=== PATIENT | female | born 1955 | race Caucasian/White ===

== ENCOUNTER → 2017-06-24 | Outpatient (CLI) | payer BC ==
[2014-07-26 16:29] VITALS: BP 127/77
--- NOTE | 2017-06-24 14:56 | RAD ---
HISTORY: Pain Study: Right hip series Comparison: None Findings: There is mild joint space narrowing in both hips. No fracture or dislocation is seen. The soft tissue s are normal. The pelvis is intact. Impression: Mild joint space narrowing in the hips otherwise, unremarkable. Reported By:
--- NOTE | 2017-06-24 14:57 | RAD ---
HISTORY: Pain Study: Bar spine series Comparison: None Findings: The lumbar vertebra are well aligned. There is moderate disc space narrowing throughout with prominen t marginal osteophytes throughout. No fracture or subluxation is seen. There are sclerotic changes of the facets inferiorly with no pars defects. IMPRESSION: Moderate degenerative disc changes throughout and moderate osteoarthritic changes of facets with no a cute abnormality seen. Reported By:
== END ==
LOC: RAD 14:19
PROVIDERS: ATTEND Nurse Practitioner Family
DX: M54.17 Radiculopathy, lumbosacral region (principal); M25.551 Pain in right hip
CPT/HCPCS: 72100; 73501

== ENCOUNTER → 2017-07-05 | Outpatient (CLI) | payer BC ==
[2014-07-26 16:29] VITALS: BP 127/77
--- NOTE | 2017-07-05 15:59 | MRI ---
MRI lumbar spine without contrast Indication: Chronic low back pain Comparison: Lumbar radiographs 06/24/2017. No previous MRI. Technique: Multiplanar multi sequence MR images of the lumbar spine were obtained without contrast. Findings: Lumbar spine alignment is normal. There is no evidence for acute lumbar spine fracture or s uspicious marrow lesion. Multilevel degenerative changes are discussed on a level by level basis luis enrique espinoza. The conus terminates at L1-2. The cauda equina is grossly unremarkable aside from nerve root crowd ing at L3-4 and L4-5 related to canal narrowing. Evaluation of the paravertebral soft tissues demonst rates no significant abnormality. Simple appearing 2.4 cm left ovarian cyst is noted. T12-L1: Minimal broad-based posterior disc bulge without significant canal or foraminal narrowing. L1-2: Mild to circumferential disc bulge and bilateral facet arthropathy, without significant foramin al or canal narrowing. L2-3: There is moderate circumferential disc bulge and mild bilateral facet arthropathy resulting in minimal neural foraminal narrowing bilaterally and mild spinal canal narrowing. L3-4: There is large circumferential disc bulge and bilateral facet arthropathy resulting in moderate left and mild right neural foraminal narrowing as well as moderate spinal canal narrowing. L4-5: There is moderate bilateral facet arthropathy, worse on the right, and large circumferential di sc bulge with superimposed right paracentral disc extrusion that results in marked effacement of the right lateral recess and moderate right neural foraminal narrowing. There is moderate to severe spina l canal narrowing and mild left neural foramen narrowing. L5-S1: There is marked bilateral facet arthropathy and mild broad-based disc bulge resulting in mild left neural foraminal narrowing, without significant right foraminal or spinal canal narrowing. Impression: Marked multilevel lumbar spondylosis, worst at L3-4 and L4-5. There is a right paracentral disc extrusion at L4-5 resulting in marked effacement of the right later al recess and descending L5 nerve root. Additional multifocal canal and foraminal narrowing as above. Reported By:
== END | disposition home or self-care (01) | DRG 566 ==
LOC: RAD 13:42
PROVIDERS: ATTEND Nurse Practitioner Family
DX: R93.7 Abnormal findings on diagnostic imaging of other parts of musculoskeletal system (principal); M54.17 Radiculopathy, lumbosacral region; M47.896 Other spondylosis, lumbar region; M51.26 Other intervertebral disc displacement, lumbar region
CPT/HCPCS: 72148

== ENCOUNTER 2021-10-09 11:23 | Observation (INO) ==
[2021-10-09 11:32] VITALS: BMI 31.1
[2021-10-09] MEDS ORDERED: NS 1,000 ML IV 1,000 ML IV ONE ×2 (12:01→13:26)
--- NOTE | 2021-10-09 12:07 | DR.NAUSEAF ---
HPI Time Seen Time Seen by Provider: 10/09/21 11:56 Primary Care Physician Primary Care Physician: GIULIANO ROBIN Complaints Chief Complaint Doctors Comments: 66 y/o female, ill since last pm. Started with nausea, then spiked a fever. Took her meds this am, feeling tired and weak. Denies pain. Has had a cough over the past year, no worse. Denies chest pain, dyspnea, rash, abdominal pain, bowel or bladder issues. Chief Complaint:: PT STATES SHE WOKE UP LASTNIGHT NAUSEA AND DENIES VOMITING STATES SHE HAD A FEVER THIS MORNING. NO ENERY AND VERY WEAK. Self Treatment fo Chief Complaint: TYLENOL, ZOFRAN COVID-19 Coronavirus risk:travel/contact w/high risk person: No Has patient experienced Coronavirus symptoms: Yes Coronavirus symptoms experienced: Fever and Coughing Reviewed Nurses Notes Reviewed: Yes Source History Provided: Patient Mode of Arrival Mode of Arrival: Ambulatory Timing Onset of Chief Complaint: 10/08/21 PMH PMH Past Medical History: Yes Past Medical History: Hypertension Past Surgical History: Yes Surgical History: Appendectomy and Hysterectomy Family History History of Family Medical Conditions: Yes Family Medical History: Diabetes Mellitus and Cancer Social History Does patient currently use any type of tobacco product: No Have you used tobacco products in the last 12 months: No Type of Tobacco Use: None Does any household member use tobacco: No Alcohol Use: None Do you use any recreational Drugs:: No Lives With: Spouse Lives Where: Home Infectious screening In the last 2 months have you had wt loss of >10#?: NO Have you had fever, night sweats or hemotysis?: No Have you traveled outside the country in the last 6 months?: No Isolation: Standard ROS Review of Systems Constitutional: Fever, Malaise and Weakness Eyes: No Symptoms Reported ENTM: No Symptoms Reported Respiratoy: Non-Productive Cough Cardiovascular: No Symptoms Reported Gastrointestinal/Abdominal: Nausea Genitourinary: No Symptoms Reported Neurological: No Symptoms Reported Musculoskeletal: No Symptoms Reported Integumentary: No Symptoms Reported Hematologic/Lymphatic: No Symptoms Reported Psychiatric: No Symptoms Reported All Other Systems: Reviewed and Negative PE Vital Signs Vitals: Temperature 98.1 F Pulse Rate 60 Respiratory Rate 19 Blood Pressure [Left Arm] 136/67 Blood Pressure 112/53 O2 Sat by Pulse Oximetry 99 General Limitations: No Limitations General Appearance: Alert, In No Apparent Distress and Other (appears tired) Head Head Exam: Normal Inspection Eyes Eye exam: PERRL and EOMI ENT ENT Exam: Normal Exam and Mucous Membranes Moist Neck Neck Exam: Normal Inspection and Full ROM Chest Chest Inspection: Normal Inspection Respiratory Respiratory Exam: negative Accessory Muscle Use and Respiratory Distress Respiratory Exam: Left: Rales (basilar) Cardiovascular Cardiovascular Exam: Regular Rate, Normal Rhythm and Normal Heart Sounds Abdominal Exam Abdominal Exam: Normal Bowel Sounds and Soft; negative Tenderness Extremities Extremities Exam: Normal Inspection and Full ROM; negative Tenderness and Edema Back Back Exam: Normal Inspection Neurologic Neurological Exam: Alert, Oriented X3 and CN II-XII Intact; negative Motor Sensory Deficit Psychiatric Psychiatric Exam: Normal Affect Skin Skin Exam: Warm and Dry MDM Differential Diagnosis Differential Diagnosis Comment: viral illness, pneumonia, Covid/Flu, dehydration COURSE Treatment Treatment: 66 y/o female ill since last pm, having persistent nausea, no vomiting, and a fever. W/u initiated. Pt given IV fluids, IV zofran. 1524 - w/u reveals pt is + for Covid. Has been vaccinated in the past. Labs overall acceptable. BP remains relatively low , 95/58. She did take her AM BP meds. Recommend admission for further observation, fluids. Discussed with covering hospitalist, Dr Jones. Accepts the admission. Will treat covid with 1 dose remdesivir, and IV steroids, as well as IV fluids. ROR Labs Reviewed Laboratory Results Reviewed?: Yes Result Diagrams: 10/09/21 11:45 10/09/21 11:45 Laboratory: WBC 6.9 X10^3/uL (3.6-10.0) 10/09/21 11:45 RBC 4.59 X10^6/uL (3.5-5.4) 10/09/21 11:45 Hgb 12.3 g/dL (12.0-16.0) 10/09/21 11:45 Hct 37.3 % (36.0-47.0) 10/09/21 11:45 MCV 81.2 fL (80.0-100.0) 10/09/21 11:45 MCH 26.9 pg (27.0-34.0) L 10/09/21 11:45 MCHC 33.1 g/dL (33.0-35.0) 10/09/21 11:45 RDW 15.2 % (11.6-16.5) 10/09/21 11:45 Plt Count 204 X10^3/uL (150.0-450.0) 10/09/21 11:45 MPV 8.2 fL (7.4-11.0) 10/09/21 11:45 Neut % (Auto) 81.4 % (42.0-75.0) H 10/09/21 11:45 Lymph % (Auto) 13.3 % (21.0-51.0) L 10/09/21 11:45 Titus % (Auto) 4.6 % (0.0-13.0) 10/09/21 11:45 Eos % (Auto) 0.6 % (0.9-2.9) L 10/09/21 11:45 Baso % (Auto) 0.1 % (0.2-1.0) L 10/09/21 11:45 Neut # (Auto) 5.6 x10^3/uL (2.2-4.8) H 10/09/21 11:45 Lymph # (Auto) 0.9 X10^3/uL (1.3-2.9) L 10/09/21 11:45 Titus # (Auto) 0.3 x10^3/uL (0.3-0.8) 10/09/21 11:45 Eos # (Auto) 0.0 x10^3/uL (0.0-0.2) 10/09/21 11:45 Baso # (Auto) 0.0 X10^3/uL (0.0-0.1) 10/09/21 11:45 Absolute Nucleated RBC 0.0 /100WBC 10/09/21 11:45 Sodium 138 mmol/L (136-145) 10/09/21 11:45 Corrected Sodium 138 mmol/L (136-145) 10/09/21 11:45 Potassium 3.6 mmol/L (3.5-5.1) 10/09/21 11:45 Chloride 103 mmol/L (98-107) 10/09/21 11:45 Carbon Dioxide 24.3 mmol/L (21-32) 10/09/21 11:45 BUN 22 mg/dL (7-18) H 10/09/21 11:45 Creatinine 1.06 mg/dL (0.55-1.02) H 10/09/21 11:45 Est GFR (MDRD) Af Amer > 60 (>60) 10/09/21 11:45 Est GFR (MDRD) Non-Af 55 (>60) L 10/09/21 11:45 Glucose 114 mg/dL (65-99) H 10/09/21 11:45 Lactic Acid 1.9 mmol/L (0.4-2.0) 10/09/21 11:45 Calcium 7.9 mg/dL (8.5-10.1) L 10/09/21 11:45 Corrected Calcium 8.5 mg/dL (8.5-10.1) 10/09/21 11:45 Total Bilirubin 0.80 mg/dL (0.2-1.0) 10/09/21 11:45 AST 58 Units/L (15-37) H 10/09/21 11:45 ALT 53 Units/L (12-78) 10/09/21 11:45 Alkaline Phosphatase 122 Units/L (46-116) H 10/09/21 11:45 Creatine Kinase 199 Units/L (26-192) H 10/09/21 11:45 CK-MB (CK-2) 1.9 ng/mL (0-4.0) 10/09/21 11:45 CK/CKMB % Calc 1.0 % (<4) 10/09/21 11:45 Troponin I High Sens 6.9 ng/L (4.0-60.0) 10/09/21 11:45 Total Protein 6.0 g/dL (6.4-8.2) L 10/09/21 11:45 Albumin 3.2 g/dL (3.4-5.0) L 10/09/21 11:45 Globulin 2.8 g/dL (2.5-4.5) 10/09/21 11:45 Albumin/Globulin Ratio 1.1 Ratio (1.1-2.1) 10/09/21 11:45 Lipase 137 Units/L (73-393) 10/09/21 11:45 Specimen Type Cancelled 10/09/21 12:06 Urine Color Cancelled 10/09/21 12:06 Urine Appearance Cancelled 10/09/21 12:06 Urine pH Cancelled 10/09/21 12:06 Ur Specific [place] Cancelled 10/09/21 12:06 Urine Protein Cancelled 10/09/21 12:06 Urine Glucose (UA) Cancelled 10/09/21 12:06 Urine Ketones Cancelled 10/09/21 12:06 Urine Blood Cancelled 10/09/21 12:06 Urine Nitrite Cancelled 10/09/21 12:06 Urine Bilirubin Cancelled 10/09/21 12:06 Urine Urobilinogen Cancelled 10/09/21 12:06 Ur Leukocyte Esterase Cancelled 10/09/21 12:06 SARS-CoV-2 (PCR) Positive (NEGATIVE) A 10/09/21 12:18 Influenza Type A (PCR) Negative (NEGATIVE) 10/09/21 12:18 Influenza Type B (PCR) Negative (NEGATIVE) 10/09/21 12:18 RSV (PCR) Negative (NEGATIVE) 10/09/21 12:18 XRAY XRAY Interpreted by: Both X-ray Results: no acute abnormalities EKG Rate: 59 [place]: Normal Rhythm: SB Block: None Hypertrophy: LAE ST: Nonsp Opioid Opioid Risk Tool Age ([place] if 16-45): No History of Preadolescent Sexual Abuse: No Total: 0 Total Score Risk Category: Low Risk Copyright: Juancarlos MISHRA predicting aberrant behaviors Diagnosis Discharge Problem: COVID-19 virus infection Hypotension Qualifiers: Hypotension type: unspecified hypotension type Qualified Code(s): I95.9 - Hypotension, unspecified
[2021-10-09] MEDS ORDERED: NS 1,000 ML IV 1,000 ML ONE ×2 (12:14→13:22)
[2021-10-09 12:15] LABS: BASOPHILS % (AUTO) 0.1 % (0.2-1.0); EOSINOPHILS % (AUTO) 0.6 % (0.9-2.9); HEMATOCRIT 37.3 % (36.0-47.0); HEMOGLOBIN 12.3 g/dL (12.0-16.0); LYMPHOCYTES # (AUTO) 0.9 X10^3/uL (1.3-2.9); LYMPHOCYTES % (AUTO) 13.3 % (21.0-51.0); MEAN CORPUSCULAR HEMOGLOBIN 26.9 pg (27.0-34.0); MEAN CORPUSCULAR HGB CONC 33.1 g/dL (33.0-35.0); MEAN CORPUSCULAR VOLUME 81.2 fL (80.0-100.0); MEAN PLATELET VOLUME 8.2 fL (7.4-11.0); MONOCYTES # (AUTO) 0.3 x10^3/uL (0.3-0.8); MONOCYTES % (AUTO) 4.6 % (0.0-13.0); NEUTROPHILS # (AUTO) 5.6 x10^3/uL (2.2-4.8); NEUTROPHILS % (AUTO) 81.4 % (42.0-75.0); RED BLOOD COUNT 4.59 X10^6/uL (3.5-5.4); RED CELL DISTRIBUTION WIDTH 15.2 % (11.6-16.5); WHITE BLOOD COUNT 6.9 X10^3/uL (3.6-10.0)
[2021-10-09 12:31] LABS: ALANINE AMINOTRANSFERASE 53 Units/L (12-78); ALBUMIN 3.2 g/dL (3.4-5.0); ALKALINE PHOSPHATASE 122 Units/L (46-116); ASPARTATE AMINO TRANSFERASE 58 Units/L (15-37); BLOOD UREA NITROGEN 22 mg/dL (7-18); CALCIUM 7.9 mg/dL (8.5-10.1); CARBON DIOXIDE 24.3 mmol/L (21-32); CHLORIDE 103 mmol/L (98-107); COR CA(FOR HYPOALB) 8.5 mg/dL (8.5-10.1); COR NA(FOR HYPERGLY) 138 mmol/L (136-145); CREATINE KINASE 199 Units/L (26-192); CREATINE KINASE MB 1.9 ng/mL (0-4.0); CREATININE 1.06 mg/dL (0.55-1.02); LIPASE 137 Units/L (73-393); SODIUM 138 mmol/L (136-145); eGFR NON BLACK RACES 55 (>60)
--- NOTE | 2021-10-09 12:38 | RAD ---
Chest AP portableIndication: Fever and coughComparison January 15, 2021FINDINGSThere is no pneumothorax or effusion. Heart size is normal. Monitor leads obscure minimal detail. No dense consolidation seenIMPRESSIONNo acute chest process.Electronically signed by: GLORIA MURRAY (October 09, 2021 12:37:10)
[2021-10-09 13:44] LABS: LACTIC ACID 1.9 mmol/L (0.4-2.0)
[2021-10-09] MEDS ORDERED: REMDESIVIR 200 MG in NS 250 ML IV 250 ML IV ONE (15:22)
[2021-10-09] MEDS ORDERED: SOLU-Medrol 125 MG VIAL IVP ONE (15:22)
[2021-10-09] MEDS ORDERED: SOLU-Medrol 125 MG VIAL ONE (15:26)
[2021-10-09] MEDS ORDERED: REMDESIVIR IV ONE (15:26)
[2021-10-09] MEDS ORDERED: NS 100 ML IV 0 ML ONE (15:27)
[2021-10-09] MEDS ORDERED: NS 250 ML IV 250 ML IV ONE (15:27)
[2021-10-09] MEDS ORDERED: ZOFRAN INJ 4 MG VIAL IVP PRN (16:13)
[2021-10-09] MEDS ORDERED: TYLENOL 325 MG TAB PO PRN (19:34)
[2021-10-09] MEDS: D5 1/2 NS 1,000 ML 1,000 ML IV SCH (20:15)
[2021-10-09] MEDS: PULMICORT NEB TX 0.5 MG NEB SCH (21:00)
[2021-10-09] MEDS: BROVANA IN SCH (21:00)
[2021-10-09] MEDS: SOLU-Medrol 40 MG VIAL IVP SCH (21:27)
[2021-10-09] MEDS: NEURONTIN CAP 100 MG PO SCH (21:27)
[2021-10-10] MEDS: D5 1/2 NS 1,000 ML 1,000 ML IV SCH ×3 (02:16→17:09)
[2021-10-10 04:57] LABS: BASOPHILS % (AUTO) 0 % (0.2-1.0); HEMATOCRIT 32.9 % (36.0-47.0); LYMPHOCYTES # (AUTO) 0.4 X10^3/uL (1.3-2.9); LYMPHOCYTES % (AUTO) 13.2 % (21.0-51.0); MEAN CORPUSCULAR HGB CONC 33.6 g/dL (33.0-35.0); MEAN CORPUSCULAR VOLUME 80.5 fL (80.0-100.0); MEAN PLATELET VOLUME 8.3 fL (7.4-11.0); MONOCYTES # (AUTO) 0 x10^3/uL (0.3-0.8); MONOCYTES % (AUTO) 1.2 % (0.0-13.0); NEUTROPHILS # (AUTO) 2.9 x10^3/uL (2.2-4.8); NEUTROPHILS % (AUTO) 85.6 % (42.0-75.0); RED BLOOD COUNT 4.08 X10^6/uL (3.5-5.4); RED CELL DISTRIBUTION WIDTH 15.1 % (11.6-16.5); WHITE BLOOD COUNT 3.3 X10^3/uL (3.6-10.0)
[2021-10-10 05:07] LABS: ALANINE AMINOTRANSFERASE 75 Units/L (12-78); ALBUMIN 2.7 g/dL (3.4-5.0); ALKALINE PHOSPHATASE 110 Units/L (46-116); ASPARTATE AMINO TRANSFERASE 61 Units/L (15-37); BLOOD UREA NITROGEN 12 mg/dL (7-18); CALCIUM 7.4 mg/dL (8.5-10.1); CARBON DIOXIDE 22.8 mmol/L (21-32); CHLORIDE 110 mmol/L (98-107); COR CA(FOR HYPOALB) 8.4 mg/dL (8.5-10.1); COR NA(FOR HYPERGLY) 144 mmol/L (136-145); CREATININE 0.82 mg/dL (0.55-1.02); SODIUM 142 mmol/L (136-145); TOTAL PROTEIN 5.5 g/dL (6.4-8.2); eGFR NON BLACK RACES > 60 (>60)
[2021-10-10] MEDS: NEURONTIN CAP 100 MG PO SCH ×3 (05:32→21:42)
[2021-10-10] MEDS: SOLU-Medrol 40 MG VIAL IVP SCH ×3 (05:32→21:41)
--- NOTE | 2021-10-10 06:52 | RAD ---
HISTORYSOBSTUDYCHEST, 1 [id number]/12/2022.TECHNIQUEAP view of the chestFINDINGSThe cardiac and mediastinal contours are within normal limits. The lungs are clear without focal consolidation or segmental collapse. No pleural effusion or pneumothorax. Soft tissue attenuation limits evaluation.IMPRESSIONNo acute pulmonary process.Electronically signed by: Kian Robertson (October 10, 2021 06:50:42)
[2021-10-10] MEDS ORDERED: KLOR-CON PO PRN (07:44)
[2021-10-10] MEDS ORDERED: POTASSIUM CHL 60 MEQ/NS 0.45% 500 ML IV PRN (07:44)
[2021-10-10] MEDS ORDERED: K-RIDER 10 MEQ/NS 100 ML 10 MEQ/100 ML BAG IV PRN (07:44)
[2021-10-10] MEDS ORDERED: K-DUR TAB 20 MEQ PO PRN (07:44)
[2021-10-10] MEDS ORDERED: POTASSIUM CHLORIDE LIQ 20 MEQ UDC PO PRN (07:44)
[2021-10-10] MEDS ORDERED: POTASSIUM CHL 40 MEQ/NS 0.45% 500 ML IV PRN (07:44)
[2021-10-10] MEDS ORDERED: MICRO K EXTEN CAP 10 MEQ PO PRN (07:44)
[2021-10-10] MEDS: PULMICORT NEB TX 0.5 MG NEB SCH ×2 (09:06→21:44)
[2021-10-10] MEDS: BROVANA IN SCH ×2 (09:06→21:44)
[2021-10-10] MEDS: PROTONIX INJ 40 MG VIAL IVP SCH (09:13)
[2021-10-10] MEDS: ZEBETA TAB 5 MG PO SCH (09:13)
[2021-10-10] MEDS: CLARITIN PO SCH (09:13)
[2021-10-10] MEDS ORDERED: ROBAXIN PO PRN (09:29)
--- NOTE | 2021-10-10 09:52 | DR.H&P ---
H&P - History & Physical for Day of: H&P Date: 10/09/21 - Chief Complaint Chief Complaint: NAUSEA, VOMITING, FEVER, SOB, WEAKNESS - History of Present Illness History of Present Illness: IS A 66 YEAR OLD PATIENT OF [employer]. SHE PRESENTED TO THE ER WITH COMPLAINTS OF NAUSEA, VOMITING, FEVER, SHORTNESS OF BREATH, AND GENERALIZED WEAKNESS. SYMPOTMS STARTED 1 DAY PRIOR TO ARRIVAL. SHE HAS A CHRONIC COUGH, BUT REPORTS THAT IT IS NOT ANY WORSE THAN IT USUALLY IS. SHE HAS TAKEN TYLENOL AND ZOFRAN WITHOUT IMPROVEMENT IN SYMPTOMS. HER PMH INCLUDES HTN, APPENDECTOMY, AND HYSTERECTOMY. SHE DENIES CHEST PAIN, RASH, ABDOMINAL PAIN, OR BOWEL/BLADDER ISSUES. ON ARRIVAL TO THE HOSPITAL, VITALS WERE 98.1-53-16-93%-76/46. LABS WERE OBTAINED. WBC 6.9, RBC 4.59, HGB 12.3, HCT 37.3, D-DIMER 1.98, SODIUM 138, POTASSIUM 3.6, CHLORIDE 103, BUN 22, CREATININE 1.06, GLUCOSE 114, LACTIC ACID 1.9, CALCIUM 7.9, AST 58, ALT 53, ALK PHOS 122, CREATININE KINASE 199, TOTAL PROTEIN 6.0, ALBUMIN 3.2. COVID-19 POSITIVE. INFLUENZAN AND RSV NEGATIVE. BLOOD CULTURES WERE SET UP. A CHEST XRAY WAS OBTAINED AND REVEALED: NO ACUTE CHEST PROCESS. EKG REVEALED: SINUS BRADYCARDIA WITH HR 59. IN THE ER, SHE WAS GIVEN A NORMAL SALINE BOLUS, REMDESIVIR 200MG IV X 1, SOLU-MEDROL 125 MG X 1. BLOOD PRESSURE INCREASED TO 105/53. SHE WAS ADMITTED TO THE HOSPITAL OBSERVATION STATUS FOR FURTHER EVALUATION AND TREATMENT OF INTRACTABLE COVID-19, HYPOTENSION, GENERALIZED WEAKNESS, INTRACTABLE NAUSEA/VOMITING. SHE WAS STARTED ON D5/12NS AT 125ML/HR, REMDESIVIR 200MG IV DAILY X 2 DAYS, BROVANA INHALER BID, PULMICORT INAHLER Q8H, SOLU-MEDROL 40MG IV Q8H, LORATEDINE 10MG PO DAILY, THE POTASSIUM AND MAGNESIUM PROTOCOLS, ZOFRAN 4MG IV Q6H PRN, PROTONIX 40MG IV DAILY, AND HER HOME MEDICATIONS WERE RESUMED. OTHERWISE, WE PLAN TO FOLLOW-UP WITH AM LABS AND CONTINUE TO MONITOR. TIME SPENT ON CLINICAL ASSESSMENT, REVIEWING LABS AND IMAGING, DECISION MAKING, AND DOCUMENTATION GREATER THAN 75 MINUTES. - Past Medical History Past Medical History: Hypertension - Past Surgical History Surgical History: Appendectomy, Hysterectomy - Family History Family Medical History: Diabetes Mellitus, Cancer - Social History Does patient currently use any type of tobacco product: No Have you used tobacco products in the last 12 months: No Type of Tobacco Use: None Does any household member use tobacco: No Alcohol Use: None Drug Use: None - Medications Home Medications: No Known Drug Allergies Allergy (Verified 01/15/21 11:44) - Review of Systems Constitutional: Fever, Weakness Eyes: No Symptoms Reported ENT: No Symptoms Reported Respiratory: Shortness of Breath Cardiovascular: Light Headedness Gastrointestinal: See HPI, Nausea, Vomiting Genitourinary: No Symptoms Reported Musculoskeletal: No Symptoms Reported Skin: No Symptoms Reported - Physical Exam Vital Signs: Temperature 98.1 F Pulse Rate [Left Radial] 68 Pulse Rate 68 Respiratory Rate 20 Blood Pressure [Left Arm] 160/74 Blood Pressure 112/53 O2 Sat by Pulse Oximetry 94 Oriented: Normal Eyes: Normal Ear: Normal Nose: Normal Throat: Normal Respiratory: Diminished Throughout Cardiovascular: Normal : Normal Auscultation: Bowel Sounds: Increased Palpation: Normal Tenderness: Normal Skin: Normal Musculoskeletal: Normal Psychiatric: Normal Mood Description: Calm Affect: Normal Speech Pattern: Clear - Assessment/Plan (1) COVID-19 virus infection Status: Acute Plan: D5/12NS AT 125ML/HR, REMDESIVIR 200MG IV DAILY X 2 DAYS, BROVANA INHALER BID, PULMICORT INAHLER Q8H, SOLU-MEDROL 40MG IV Q8H, LORATEDINE 10MG PO DAILY, THE POTASSIUM AND MAGNESIUM PROTOCOLS, ZOFRAN 4MG IV Q6H PRN, PROTONIX 40MG IV DAILY, AND HER HOME MEDICATIONS WERE RESUMED. (2) Nausea and vomiting in adult patient Status: Acute (3) Generalized weakness Status: Acute (4) Shortness of breath Status: Acute (5) Hypotension Qualifiers: Hypotension type: unspecified hypotension type Qualified Code(s): I95.9 - Hypotension, unspecified Status: Acute - Allergies Allergies/Adverse Reactions: Allergies Allergy/AdvReac Type Severity Reaction Status Date / Time No Known Drug Allergies Allergy Verified 01/15/21 11:44
[2021-10-10] MEDS: REMDESIVIR 200 MG in NS 250 ML IV 250 ML IV SCH (10:43)
[2021-10-10] MEDS: LOTENSIN TAB 10 MG PO SCH (10:44)
[2021-10-10] MEDS: XANAX PO SCH (10:44)
[2021-10-10] MEDS: MOBIC TAB 15 MG PO SCH (10:45)
[2021-10-11] MEDS: D5 1/2 NS 1,000 ML 1,000 ML IV SCH ×3 (03:33→08:24)
[2021-10-11 04:48] LABS: BASOPHILS % (AUTO) 0.1 % (0.2-1.0); HEMATOCRIT 32.3 % (36.0-47.0); LYMPHOCYTES # (AUTO) 0.8 X10^3/uL (1.3-2.9); LYMPHOCYTES % (AUTO) 10.9 % (21.0-51.0); MEAN CORPUSCULAR HEMOGLOBIN 27.6 pg (27.0-34.0); MEAN CORPUSCULAR VOLUME 81.1 fL (80.0-100.0); MEAN PLATELET VOLUME 8.8 fL (7.4-11.0); MONOCYTES # (AUTO) 0.3 x10^3/uL (0.3-0.8); MONOCYTES % (AUTO) 3.5 % (0.0-13.0); NEUTROPHILS # (AUTO) 6.6 x10^3/uL (2.2-4.8); NEUTROPHILS % (AUTO) 85.5 % (42.0-75.0); RED BLOOD COUNT 3.99 X10^6/uL (3.5-5.4); RED CELL DISTRIBUTION WIDTH 15.6 % (11.6-16.5); WHITE BLOOD COUNT 7.7 X10^3/uL (3.6-10.0)
[2021-10-11 05:03] LABS: ALANINE AMINOTRANSFERASE 85 Units/L (12-78); ALBUMIN 2.7 g/dL (3.4-5.0); ALKALINE PHOSPHATASE 109 Units/L (46-116); ASPARTATE AMINO TRANSFERASE 65 Units/L (15-37); BLOOD UREA NITROGEN 17 mg/dL (7-18); CALCIUM 7.7 mg/dL (8.5-10.1); CARBON DIOXIDE 24.3 mmol/L (21-32); CHLORIDE 111 mmol/L (98-107); COR CA(FOR HYPOALB) 8.7 mg/dL (8.5-10.1); COR NA(FOR HYPERGLY) 145 mmol/L (136-145); SODIUM 143 mmol/L (136-145); TOTAL PROTEIN 5.4 g/dL (6.4-8.2); eGFR NON BLACK RACES > 60 (>60)
[2021-10-11] MEDS: SOLU-Medrol 40 MG VIAL IVP SCH ×2 (05:44→13:35)
[2021-10-11] MEDS: NEURONTIN CAP 100 MG PO SCH ×2 (05:44→13:32)
--- NOTE | 2021-10-11 07:44 | RAD ---
CHEST, 1 VIEWHISTORY: SOBStudy: Single view of the chest.Comparison:NoneFindings:The cardiomediastinal silhouette is normal.No focal consolidations, pleural effusions or pneumothorax. Osseous structures demonstrate no acute abnormality.IMPRESSION:1. No acute cardiopulmonary process.Electronically signed by: AKI RAMSEY (October 11, 2021 07:42:32)
[2021-10-11] MEDS: XANAX PO SCH (08:21)
[2021-10-11] MEDS: LOTENSIN TAB 10 MG PO SCH (08:21)
[2021-10-11] MEDS: CLARITIN PO SCH (08:21)
[2021-10-11] MEDS: MOBIC TAB 15 MG PO SCH (08:21)
[2021-10-11] MEDS: ZEBETA TAB 5 MG PO SCH (08:21)
[2021-10-11] MEDS: REMDESIVIR 200 MG in NS 250 ML IV 250 ML IV SCH (08:23)
[2021-10-11] MEDS: PROTONIX INJ 40 MG VIAL IVP SCH (08:23)
[2021-10-11] MEDS: PULMICORT NEB TX 0.5 MG NEB SCH (08:30)
[2021-10-11] MEDS: BROVANA IN SCH (08:30)
[2021-10-11 12:46] VITALS: BP 150/65
[2021-10-11] MEDS: ZITHROMAX TAB 250 MG PO ONE ×2 (13:26→13:30)
[2021-10-11] MEDS ORDERED: ZITHROMAX TAB 250 MG PO ONE (13:31)
== END 2021-10-11 13:40 | disposition home or self-care (01) ==
LOC: MED/SURG 11:23 → ER 11:23 → MED/SURG 16:10
PROVIDERS: ADMIT Internal Medicine; ATTEND Internal Medicine
DX: R79.1 Abnormal coagulation profile; R11.2 Nausea with vomiting, unspecified; I10 Essential (primary) hypertension; U07.1 COVID-19; E11.65 Type 2 diabetes mellitus with hyperglycemia; R79.82 Elevated C-reactive protein (CRP); R06.02 Shortness of breath; I95.89 Other hypotension; J20.8 Acute bronchitis due to other specified organisms; R53.1 Weakness